=== PATIENT | male | born 1990 | race Caucasian/White ===

== ENCOUNTER 2018-09-10 12:14 | Inpatient (IN) ==
[2018-09-10] MEDS ORDERED: *HR* HYDROmorphone (PF) 1 MG/ML SYRINGE IVP ONE ×3 (12:52→15:23)
--- NOTE | 2018-09-10 12:53 | Emergency Department Note ---
Disposition Clinical Impression: Discitis of lumbosacral region Disposition: Admitted As Inpatient Forms: ED Satisfaction Letter General Adult HPI - General Chief complaint: ED Back Pain/Injury Stated complaint: BACK PAIN POSSIBLE INFECTION TO SPINE Time Seen by Provider: 09/10/18 12:23 Source: patient Limitations: no limitations Nursing Notes Reviewed: Yes Vital Signs Reviewed: Yes - History of Present Illness HPI Narrative: Attestation note: Patient was seen with the emergency medicine resident/nurse practitioner/physician medical assistant/transitional resident/medical student: Dr. ABBE TRUJILLO I have personally performed a face to face evaluation on this patient. I have reviewed and agree with history and physical examination patient management and disposition. Briefly the salient points of the case are as follows: Patient was seen just [address] Dickens and Dr. Osorio, the performed an MRI of the spine which was suggestive for discitis versus osteomyelitis. That CBC ESR CRP which were within normal limits the consulted spine surgeon production supv Dr. Cotton who recommended the patient come in for IV antibiotics. They offered this patient declined and was discharged home. Patient returns with continuing pain states she wishes to be admitted at this time. Patient will have repeated labs IV analgesics will start IV antibiotics after cultures and we will admit. Disposition pending Pain Scale: 10 - Related Data Allergies Allergy/AdvReac Type Severity Reaction Status Date / Time No Known Allergies Allergy Verified 09/10/18 12:18 Past Medical History - Past Medical History Medical history: Reports: no medical history Psychiatric history: Reports: no psych history - Social History Smoking Status: Former smoker Smokeless Tobacco Status: No Alcohol use: Reports: rarely Drug use: Reports: none Physical Exam - General Limitations: no limitations General appearance: alert, in no apparent distress Course Vital Signs Temperature 97.9 F 09/10/18 12:18 Pulse Rate 89 09/10/18 12:18 Respiratory Rate 18 09/10/18 12:18 Blood Pressure 153/100 09/10/18 12:18 O2 Sat by Pulse Oximetry 99 09/10/18 12:18 Temperature 97.9 F 09/10/18 12:18 Pulse Rate 89 09/10/18 12:18 Respiratory Rate 18 09/10/18 12:18 Blood Pressure 153/100 09/10/18 12:18 O2 Sat by Pulse Oximetry 99 09/10/18 12:18 Oxygen Delivery Oxygen Delivery Room Air
[2018-09-10 13:42] LABS: Basophils % 0.3 %; Eosinophils # 0.1 K/mcL (0.0-0.6); Eosinophils % 1.1 %; Hematocrit 46.5 % (37.5-50.1); Hemoglobin 15.5 g/dL (12.9-16.9); Immature Granulocytes % 0.6 % (0-4); Lymphocytes # 2.4 K/mcL (0.6-4.6); Lymphocytes % 21.9 %; Mean Corpuscular HGB Conc 33.3 g/dL (31.6-35.5); Mean Corpuscular Hemoglobin 30.6 pg (28.0-33.3); Mean Corpuscular Volume 91.7 fL (83.0-100.0); Mean Platelet Volume 9.9 fL (9.4-12.4); Monocytes # 0.7 K/mcL (0.0-1.3); Monocytes % 6.4 %; Neutrophils # 7.5 K/mcL (1.6-8.9); Platelet Count 212 K/mcL (140-400); Red Blood Count 5.07 M/mcL (4.19-5.50); Red Cell Distribution Width 12.4 % (11.5-14.5); Segmented Neutrophils % 69.7 %
[2018-09-10 13:59] LABS: BUN/Creatinine Ratio 18 (6-26); Blood Urea Nitrogen 15 mg/dL (6-20); C-Reactive Protein < 5 mg/L (Less than 10); Calcium 8.8 mg/dL (8.6-10.3); Carbon Dioxide 30 mEq/L (23-29); Chloride 102 mEq/L (98-107); Glucose 98 mg/dL (70-105); Osmolality,Calculated 291 (280-300); Potassium 3.3 mEq/L (3.5-5.1); Sodium 140 mEq/L (136-145); eGFR For Non-African Americans > 60 (> 60)
[2018-09-10] MEDS ORDERED: Ondansetron 4 MG/2 ML VIAL IVP ONE (14:17)
--- NOTE | 2018-09-10 14:18 | Emergency Department Note ---
Disposition Clinical Impression: Discitis of lumbosacral region, Lumbar radiculopathy, Spinal stenosis Disposition: Admitted As Inpatient Condition: Fair Referrals: NONE,PCP [Primary Care Provider] - Forms: ED Satisfaction Letter Time of Disposition: 15:26 Back Pain HPI - General Chief Complaint: ED Back Pain/Injury Stated Complaint: BACK PAIN POSSIBLE INFECTION TO SPINE Time Seen by Provider: 09/10/18 12:23 Source: patient Limitations: no limitations Nursing Notes Reviewed: Yes Vital Signs Reviewed: Yes - History of Present Illness HPI Narrative: 28 yo male with past medical history significant for spinal surgery performed in December presents to the emergency department with back pain. Patient was seen here 2 days ago and had an MRI performed which showed probable osteomyelitis and Dr. Cotton was called at that time. Dr. Cotton offered the patient admission versus discharge for treatment of his back pain that has been constant since December the patient wished to be discharged at that time. Patient is returning today and states he is willing to be admitted today. He has decreased sensation in his bilateral lower extremities with associated weakness and pain. Patient denies intravenous drug use, no longer smokes but was a daily smoker, and rarely uses alcohol. - Related Data Home Medications Medication Instructions Recorded Confirmed Gabapentin [Neurontin] 600 mg PO TID 09/10/18 09/10/18 Oxycodone HCl/Acetaminophen 1 each PO Q8H PRN 09/10/18 09/10/18 [Percocet 5-325 mg Tablet] Allergies Allergy/AdvReac Type Severity Reaction Status Date / Time No Known Allergies Allergy Verified 09/10/18 12:18 All systems ED: reviewed and negative except as stated. Review of Systems: As Per HPI Constitutional: Reports: weakness. Denies: fever, chills Cardiovascular: Denies: chest pain, palpitations, dyspnea on exertion Respiratory: Denies: cough, dyspnea, wheezes Gastrointestinal: Reports: nausea, vomiting. Denies: abdominal pain, diarrhea Genitourinary: Denies: dysuria, hematuria Musculoskeletal: Reports: back pain. Denies: neck pain Integumentary: Denies: rash Neurological: Reports: weakness, numbness, paresthesias, abnormal gait. Denies: headache Endocrine: Reports: fatigue Past Medical History - Past Medical History Attestation: Yes The following information was validated with the patient. Source: patient Medical history: Reports: no medical history Psychiatric history: Reports: no psych history - Social History Smoking Status: Former smoker Smokeless Tobacco Status: No Alcohol use: Reports: rarely Drug use: Reports: none Physical Exam - General Limitations: no limitations General appearance: alert, in no apparent distress - Head Head exam: atraumatic, normocephalic - Eye Eye exam: Present: PERRL, EOMI, other (Ptosis of the left eye, patient states this is chronic) - ENT ENT exam: normal exam, normal oropharynx - Neck Neck exam: Present: normal inspection. Absent: tenderness, meningismus, lymphadenopathy - Chest Chest inspection: Present: normal inspection. Absent: tenderness, rash - Respiratory Respiratory exam: Present: normal lung sounds bilaterally - Cardiovascular Cardiovascular exam: Present: regular rate, normal rhythm - Abdominal Exam Abdominal exam: Present: soft, Non-Tender. Absent: distention, guarding, rebound, rigidity - Extremities Exam Extremities exam: Absent: pedal edema - Back Exam Back exam: Present: vertebral tenderness (At the level of the scar), straight leg raise (R), straight leg raise (L) - Neurological Exam Neurological exam: Present: alert, oriented X3, other (Patient endorses decreased sensation of his low back at the level of his scar, continuing down his lower extremities. He also has weakness of his lower 70s with dorsiflexion and plantar flexion, weakness and leg raise causes pain in his low back.) - Psychiatric Psychiatric exam: Present: normal affect, normal mood - Skin Skin exam: Present: warm, dry, intact Course Vital Signs Temperature 97.9 F 09/10/18 12:18 Pulse Rate 89 09/10/18 12:18 Respiratory Rate 18 09/10/18 12:18 Blood Pressure 153/100 09/10/18 12:18 O2 Sat by Pulse Oximetry 99 09/10/18 12:18 Temperature 97.9 F 09/10/18 12:18 Pulse Rate 84 09/10/18 14:08 Respiratory Rate 18 09/10/18 14:08 Blood Pressure 146/100 09/10/18 14:08 O2 Sat by Pulse Oximetry 96 09/10/18 14:08 Oxygen Delivery Oxygen Delivery Room Air Back Pain/Injury - MDM Narrative Medical decision making narrative: Patient with recent diagnosis of possible discitis versus osteomyelitis on Fr iday returns to the emergency department for worsening pain and neuro symptoms. We will repeat blood work and admitted to the hospitalist for treatment of his osteomyelitis. 1500 - spoke with the hospitalist who requests Dr. Cotton be notified of this patient and wishes the patient be started on vanc and zosyn. I called and spoke with Dr. Cotton who states that he does not believe that this is discitis or osteomyelitis as the patient's ESR and CRP are within normal limits. He states that he will be on-call if the hospitalist should need him for any acute spinal emergencies but suggests that this time that the patient have his pain controlled and have a possible neurology consult for his lower extremity weakness and neurologic symptoms. - Medical Records Medical records reviewed: Yes I reviewed the patient's medical records. - Lab Data Lab results reviewed: Yes I reviewed the patient's lab results. Result diagrams: 09/10/18 13:27 09/10/18 13:27 Lab Results 09/10/18 09/10/18 09/10/18 Range/Units 13:27 13:27 13:27 WBC 10.8 (4.3-11.1) K/mcL RBC 5.07 (4.19-5.50) M/mcL Hgb 15.5 (12.9-16.9) g/dL Hct 46.5 (37.5-50.1) % MCV 91.7 (83.0-100.0) fL MCH 30.6 (28.0-33.3) pg MCHC 33.3 (31.6-35.5) g/dL RDW 12.4 (11.5-14.5) % Plt Count 212 (140-400) K/mcL MPV 9.9 (9.4-12.4) fL Immature Gran % 0.6 (0-4) % Seg Neutrophils % 69.7 % Lymphocytes % 21.9 % Monocytes % 6.4 % Eosinophils % 1.1 % Basophils % 0.3 % Neutrophils # 7.5 (1.6-8.9) K/mcL Lymphocytes # 2.4 (0.6-4.6) K/mcL Monocytes # 0.7 (0.0-1.3) K/mcL Eosinophils # 0.1 (0.0-0.6) K/mcL Basophils # 0.0 (0.0-0.2) K/mcL ESR 9 (0-10) mm/hr Sodium 140 (136-145) mEq/L Potassium 3.3 L (3.5-5.1) mEq/L Chloride 102 (98-107) mEq/L Carbon Dioxide 30 H (23-29) mEq/L BUN 15 (6-20) mg/dL Creatinine 0.85 (0.70-1.30) mg/dL Est GFR ( Amer) > 60 (> 60) Est GFR (Non-Af Amer) > 60 (> 60) BUN/Creatinine Ratio 18 (6-26) Glucose 98 (70-105) mg/dL Calculated Osmolality 291 (280-300) Calcium 8.8 (8.6-10.3) mg/dL C-Reactive Protein < 5 (Less than 10) mg/L - Radiology Data Radiology results reviewed: Yes I reviewed the patient's radiology results. - EKG Data EKG attestation: Yes I reviewed and interpreted this EKG. EKG results narrative: EKG obtained at 13:02 on 09/10/2018 Heart rate 77 bpm, SD interval 148, QRS duration 100, QT 370, QTC 419 Sinus rhythm with RSR prime in lead V1. No signs of ST segment elevations or depressions. No other T-wave abnormalities. No old EKG for comparison.
[2018-09-10] MEDS ORDERED: Acetaminophen 325 MG TABLET PO PRN (16:19)
[2018-09-10] MEDS ORDERED: Naloxone 0.4 MG/ML INJ IVP PRN (16:19)
[2018-09-10] MEDS: *HR* Heparin 5,000 UNIT/ML VIAL SQ SCH (16:54)
[2018-09-10] MEDS: *HR* OxyCODONE Immed Rel 5 MG TABLET PO PRN ×2 (16:54→23:07)
--- NOTE | 2018-09-10 17:32 | Internal Med History&Physical ---
Date of Encounter: 09/10/18 Time of Encounter: 16:00 Internal Medicine - H&P: HPI Chief complaint: Back pain with bilateral leg weakness Admitted From: Home Plans for Post Hospital Care: Home History of present illness: Mr. Sanders is a 28 year old male presented to ER for chronic and the progressive back pain with bilateral leg weakness/numbness. Past medical history is significant for congenital spinal stenosis S/P surgery in December 2017. Patient has spinal surgery on December 2017 in [facility] by Dr Carlisle. After surgery, patient has chronic back pain, which is progressively getting worse. Patient also has bilateral leg numbness and weakness. Patient's symptoms getting worse gradually. In last 3 months, he has several fall because of bilateral leg weakness. Patient denies urinary or fecal incontinence. Patient denies a fever. Patient came to emergency room on Tuesday, MRI L-spine has been done, which shows suspected discitis/osteomyelitis and anterior paraspinal phlegmon. Spinal surgery was called at that time, recommend patient to follow-up as outpatient or have inpatient treatment. Patient close to treat as outpatient. However, patient change his mind today and would like to treat as inpatient. Past Med Surg Social Fam HX - Past Medical History Medical history: no medical history Psychiatric history: no psych history - Past Surgical History Surgical History: cholecystectomy Additional surgical history: DISCECTOMY L5-S1 DEC 2017, [facility] - Social History Smoking Status: Former smoker Smokeless Tobacco Status: No Alcohol use: rarely Drug use: none - Family History Mother Hx Family Psychosocial Disorders: Yes (BIPOLAR, MEMORY LOSS, ANXIETY) Hx Family Medical Disorders: (CVA'S) Internal Medicine - H&P: Meds Gabapentin [Neurontin] 600 mg PO TID 09/10/18 [History] Oxycodone HCl/Acetaminophen [Percocet 5-325 mg Tablet] 1 each PO Q8H PRN 09/10/18 [History] Allergy/AdvReac Type Severity Reaction Status Date / Time No Known Allergies Allergy Verified 09/10/18 12:18 All Systems PM: A 10-system review of systems was performed and is negative for pertinent findings except as documented above in the HPI. - Constitutional Vitals: Temp Pulse Resp BP Pulse Ox 98.0 F 74 16 136/91 96 09/10/18 16:22 09/10/18 16:22 09/10/18 16:22 09/10/18 16:22 09/10/18 16:22 Exam: Pt is AAO x 3, in NAD HEENT: NC/AT, PERRL Neck: Supple, no JVD, no LAD Lungs: CTA b/l Heart: S1S2, RRR Abd: Soft, nontender, BS present Ext: ROM wnl, no pedal edema Neuro: Bilateral leg decreased sensation. Straight leg raising test positive bilaterally. Internal Med - H&P Results - Labs CBC & Chem 7: 09/10/18 13:27 09/10/18 13:27 Labs: Short CBC 09/10/18 Range/Units 13:27 WBC 10.8 (4.3-11.1) K/mcL Hgb 15.5 (12.9-16.9) g/dL Hct 46.5 (37.5-50.1) % Plt Count 212 (140-400) K/mcL Neutrophils # 7.5 (1.6-8.9) K/mcL BMP 09/10/18 13:27 Sodium 140 Potassium 3.3 L Chloride 102 Carbon Dioxide 30 H BUN 15 Creatinine 0.85 Glucose 98 Calcium 8.8 - Assessment and Plan (1) Discitis of lumbosacral region Current Visit: Yes Status: Acute Assessment and plan: Spinal surgery Dr. Cotton was called. Will see patient. - Continue pain management. Continue physical therapy. (2) Lumbar radiculopathy Current Visit: Yes Status: Acute Assessment and plan: Management as above (3) Spinal stenosis Current Visit: Yes Status: Acute Assessment and plan: S/P surgery. MRI shows congenital spinal stenosis. Continue pain management and physical therapy. Consul spinal surgery Qualifiers: Spinal region: lumbar Neurogenic claudication status: with neurogenic claudication Qualified Code(s): M48.062 - Spinal stenosis, lumbar region with neurogenic claudication (4) Osteomyelitis Current Visit: Yes Status: Acute Assessment and plan: MRI suspected osteomyelitis. However patient's back pain and leg numbness/weakness is quite chronic after surgery. He has no fever, no leukocytosis. More importantly, his CRP and ESR is within normal limit. Discussed surgical consult Dr. Cotton on phone, consider less likely osteomyelitis. - We will hold antibiotic at this point. Waiting for spinal surgery see patient. Qualifiers: Osteomyelitis type: unspecified type Osteomyelitis location: other site Qualified Code(s): M86.9 - Osteomyelitis, unspecified - Time Spent With Patient Total time spent is greater than 50% in coordination of care (as documented) at patient's floor/unit and/or counseling patient: 40 minutes Greater than 35 minutes
--- NOTE | 2018-09-10 17:43 | Spine Progress Note ---
Date of Encounter: 09/10/18 Time of Encounter: 17:40 - Assessment and Plan (1) Status post lumbar microdiscectomy Current Visit: Yes Status: Chronic Patient is lying in bed complaining of back pain which she rates as 7 on a pain scale. Afebrile vital signs stable. His hips move symmetrically. He is able to fire all lower extremity motor groups but with questionable effort. He has at least 3+ strength in the quads and hamstings, dorsiflexors and plantar flexors. He has a negative straight leg raise. He has no clonus. MRI of the lumbar spine reveals postsurgical changes at L5-S1 consistent with decompression. He has some inflammatory/postsurgical changes but I do not see clear evidence of discitis osteomyelitis or epidural abscess. He has some residual foraminal narrowing at L4-5 and L5-S1. Laboratory studies reveal white count 10 with no shift, ESR and CRP are within normal limits Impression: 1) failed back surgical syndrome 2) lumbar radiculopathy 3) status post microdiscectomy Plan: I do not see a role for acute surgical intervention. His workup thus far including MRI and EMG as an outpatient has been negative. He has missed pain management appointments with Dr. Cortes and I will suggest that we schedule follow-up in Dr. Cortes's office for management of failed back syndrome including consideration of spinal cord stimulator or other interventional treatment. It may be reasonable to get a neurologic opinion in case this is something nonspine related with regard to his lower extremity weakness but I have low suspicion of definitive findings. Subjective Principal diagnosis: S/p lumbar microdiscectomy, failed back syndrome, lumbar radiculopathy Interval history: Patient is well known to my practice. Briefly he is a 28-year-old male with c hronic history of back pain and bilateral lower extremity radicular symptoms and paresthesias. I saw him June 2018. He has a history of prior lumbar decompressive surgeries on 2 occasions one week apart at [facility] [place]. His first surgeon was Dr. Carlisle who did a decompression at L5-S1 and then approximately 1 week later he had another surgery by his partner. He said he did not get complete relief of symptoms despite these procedures. He has had workup in our office including MRI at that time in June 2018 as well as EMG of the lower extremities by Dr. Price which was normal. He is admitted with concerns and complaints of weakness in the lower extremities as well as concern for osteomyelitis on MRI examination. He is currently afebrile. His laboratory indices including CBC with differential, ESR, and CRP are within normal limits. He denies fevers or chills. Objective Vital signs: Vital Signs Temp Pulse Resp BP Pulse Ox 09/10/18 16:22 98.0 F 74 16 136/91 96 09/10/18 15:34 88 18 135/92 97 09/10/18 14:08 84 18 146/100 96 09/10/18 12:18 97.9 F 89 18 153/100 99 Intake and Output 09/10/18 09/10/18 09/10/18 07:59 15:59 23:59 Other: Weight 130.544 kg 129.7 kg Patient Weight 09/10/18 23:59 Weight 129.7 kg - Labs CBC & BMP: 09/10/18 13:27 09/10/18 13:27 Labs: Abnormal lab results Potassium 3.3 mEq/L (3.5-5.1) L 09/10/18 13:27 Carbon Dioxide 30 mEq/L (23-29) H 09/10/18 13:27 Consult Discharge Plan - Plan Referrals: NONE,PCP [Primary Care Provider] -
[2018-09-10] MEDS: *HR* HYDROcodone/Acet 5/325 mg TABLET PO PRN (18:50)
[2018-09-11] MEDS: Gabapentin 300 MG CAPSULE PO SCH ×4 (00:33→20:59)
[2018-09-11 01:16] LABS: Amphetamine Screen,Urine Negative ng/mL (Cutoff=1000); Barbiturate Screen,Urine Negative ng/mL (Cutoff=200); Benzodiazepines Screen,Urine Negative ng/mL (Cutoff=200); Cannabinoid Screen,Urine Negative ng/mL (Cutoff = 50); Cocaine Screen,Urine Negative ng/mL (Cutoff= 300); Opiate Screen,Urine Positive ng/mL (Cutoff=300); Phencyclidine Screen,Urine Negative ng/mL (Cutoff=25)
[2018-09-11] MEDS: *HR* Heparin 5,000 UNIT/ML VIAL SQ SCH ×2 (05:34→17:25)
[2018-09-11] MEDS: *HR* OxyCODONE Immed Rel 5 MG TABLET PO PRN ×4 (05:35→20:59)
[2018-09-11 05:59] LABS: Basophils % 0.6 %; Eosinophils # 0.2 K/mcL (0.0-0.6); Eosinophils % 3.1 %; Hematocrit 43.5 % (37.5-50.1); Hemoglobin 14.2 g/dL (12.9-16.9); Immature Granulocytes % 0.4 % (0-4); Lymphocytes # 2.7 K/mcL (0.6-4.6); Lymphocytes % 38.7 %; Mean Corpuscular HGB Conc 32.6 g/dL (31.6-35.5); Mean Corpuscular Hemoglobin 30.2 pg (28.0-33.3); Mean Corpuscular Volume 92.6 fL (83.0-100.0); Mean Platelet Volume 10.3 fL (9.4-12.4); Monocytes # 0.6 K/mcL (0.0-1.3); Monocytes % 8.3 %; Neutrophils # 3.4 K/mcL (1.6-8.9); Platelet Count 185 K/mcL (140-400); Red Cell Distribution Width 12.1 % (11.5-14.5); Segmented Neutrophils % 48.9 %
[2018-09-11 06:03] LABS: Prothrombin Time 10.8 Seconds (9.4-12.1)
[2018-09-11 06:18] LABS: BUN/Creatinine Ratio 15 (6-26); Blood Urea Nitrogen 13 mg/dL (6-20); Calcium 8.8 mg/dL (8.6-10.3); Carbon Dioxide 33 mEq/L (23-29); Chloride 103 mEq/L (98-107); Chol/HDL Ratio 3.2 (0-4.9); Cholesterol 119 mg/dL (< 200); Glucose 103 mg/dL (70-105); HDL Cholesterol 37 mg/dL (40-59); LDL Cholesterol,Calculated 57 mg/dL (0-99); Magnesium 2.3 mg/dL (1.6-2.6); Osmolality,Calculated 294 (280-300); Potassium 3.4 mEq/L (3.5-5.1); Sodium 142 mEq/L (136-145); Triglycerides 127 mg/dL (< 150); eGFR For Non-African Americans > 60 (> 60)
--- NOTE | 2018-09-11 09:33 | Neurology - Consult Note ---
<Connor Hurtado J - Last Filed: 09/11/18 11:07> Date of Encounter: 09/11/18 Time of Encounter: 09:24 Assessment and Plan (1) Status post lumbar microdiscectomy Current Visit: Yes Status: Chronic 28-year-old male who is S/P lumbar microdiscectomy and failed back syndrome with lumbar radiculopathy. Neurology to evaluate for nonspinal cause of bilateral lower extremity weakness. Reporting bilateral leg weakness since December 2017 S/P lumbar microdiscectomy; Progressing more rapidly in the last 2 months MRI spine imaging reveals postsurgical changes at L5-S1 consistent with decompression. Orthopedist seeing in consultation; recommendations appreciated. Per orthospine evaluation the MRI imaging does not reveal clear evidence of discitis, osteomyelitis or epidural abscess; most likely postsurgical changes Neurologically his is intact including reflexes which are 2/4+ bilaterally arms and legs. He displays mild weakness to bilateral legs but also appears to have poor effort moving legs to resistance. He notes low back pain with bilateral leg movement. Additionally, the patient notes that he did not complete physical therapy upon discharge from [facility] in December 2017. I have low suspicion for an acute inflammatory process such as GBS for the cause of his symptoms. Additionally, there are no UMN findings to suggest stenosis in the cervical spine. History of Present Illness Chief complaint: BLE weakness HPI: Mr. Sanders is a 28 year old male with a medical history significant for congenital spinal stenosis, discectomy x2 with most recent being in December 2017 of the L5-S1. He presented to [facility] with chronic and progressive back pain and chronic bilateral leg weakness/numbness. He reports that the leg weakness has been ongoing since his last surgery in December of 2017 and notes that it has gotten progressively worse in June of 2018. He reports that he has had several episodes in which he states "my legs have given out" which prompted him to fall. Addtionally, he notes that he has not been going to physical therapy since disc harge due to insurance and financial issues. He notes that due to the progressive leg weakness and falls he has had a decreased activity tolerance. He denies any flulike symptoms, unilateral weakness, urinary or bowel incontinence. He admits to bilateral leg paresthesias and intermittent shooting /"lightning" type leg pain in his left leg which is exacerbated by activity. MRI of the L-spine has been completed which showed suspected discitis versus osteomyelitis and anterior paraspinal phlegmon. Neurology has been consulted to assist with evaluation and to rule out suspicion for any other nonspinal cause of lower extremity weakness. Past Med Surg Social Fam HX - Past Medical History Medical history: no medical history Psychiatric history: no psych history - Past Surgical History Surgical History: cholecystectomy Additional surgical history: DISCECTOMY L5-S1 DEC 2017, TONISHERMILO, ADNOIDS - Social History Smoking Status: Former smoker Smokeless Tobacco Status: No Alcohol use: rarely Drug use: none - Family History Mother Hx Family Psychosocial Disorders: Yes (BIPOLAR, MEMORY LOSS, ANXIETY) Hx Family Medical Disorders: (CVA'S) Medications and Allergies Gabapentin [Neurontin] 600 mg PO TID 09/10/18 [History] Oxycodone HCl/Acetaminophen [Percocet 5-325 mg Tablet] 1 each PO Q8H PRN 09/10/18 [History] Allergy/AdvReac Type Severity Reaction Status Date / Time No Known Allergies Allergy Verified 09/10/18 12:18 All Systems: The remainder of the systems were reviewed and are negative Review of Systems: REVIEW OF SYSTEMS NEUROLOGIC: Negative for any blurry vision, blind spots, double vision, facial asymmetry, dysphagia, dysarthria, hemiparesis, hemisensory deficits, unilateral weakness or numbness/tingling + burning, shooting pain of RLE and B/L leg weakness, parasthesias B/L legs ENDOCRINE: Thyroid trouble, heat/cold intolerance, excessive sweating, thirst, hunger, increased FSBG, or A1C, DM, increased urination, changes in height/weight MUSCULOSKELETAL: + loss of strength bilateral legs, limitations to activity tolerance Physical Examination - Vital Signs Vital Signs: Initial Vital Signs Temp Pulse Resp BP Pulse Ox 97.9 F 89 18 153/100 99 09/10/18 12:18 09/10/18 12:18 09/10/18 12:18 09/10/18 12:18 09/10/18 12:18 - Exam Exam: Examination: General Examination: *CONSTITUTIONAL: Alert and oriented x3, no acute distress *GENERAL APPEARANCE OF PATIENT appears healthy and well groomed *EYES: pupils equal, round, reactive to light and accommodation, conjunctiva clear *CARDIOVASCULAR no peripheral edema, distal temperature normal, dorsalis pedis pulses normal. Musculoskeletal: *GAIT AND STATION normal, with normal Romberg testing, no abnormalities such as broad base gait or spasticity *ASSESSMENT OF MUSCLE STRENGTH IN THE UPPER AND LOWER EXTREMITIES bilateral deltoid, bicep, tricep, linotype machinist strength 4/5, hip flexors ,anterior tibialis, dorsoflexion of the foot 4/5; poor effort on exam of strength BLE *MUSCLE TONE IN THE UPPER AND LOWER EXTREMITIES normal. No abnormal movements, fasciculations or atrophy identified. Neurological: *ORIENTATION to person, situation, time and place *RECURRENT AND REMOTE MEMORY intact *ATTENTION AND CONCENTRATION are normal *LANGUAGE FUNCTION no significant aphasia or dysarthia was noted. *FUND OF KNOWLEDGE aware of current events, past history, vocabulary *MENTAL attention span and concentration normal. *CN II optic fundi were normal, no papilledema noted. *CN III,IV, PERRLA extraocular eye movements were full, no nystagmus and no ptosis noted. *CN V shows normal sensation and jaw opens symmetrically. *CN VII shows normal facial movement symmetrically, upper and lower b ilaterally. *CN VIII shows no significant hearing loss on exam *CN IX,,X palate elevated symmetrically *CN XI normal strength in the sternocleidomastoid muscles, symmetrical shoulder shrugging. *CN XII tongue protruded in the midline, with normal strength and movement. *SENSORY EXAMINATION light touch intact *REFLEXES: deep tendon reflexes were normal and symmetrical , grade 2/4 diffusely, no pathological reflexes were noted. *CEREBELLAR TESTING normal finger to nose, heel/knee/barrow *PAIN LEVEL 0 Results - Laboratory Findings CBC and BMP: 09/11/18 05:11 09/11/18 05:11 Abnormal lab findings: Abnormal lab results Potassium 3.4 mEq/L (3.5-5.1) L 09/11/18 05:11 Carbon Dioxide 33 mEq/L (23-29) H 09/11/18 05:11 37 mg/dL (40-59) L 09/11/18 05:11 Positive ng/mL ([place]=192) H 09/11/18 00:40 - Diagnostic Findings Additional findings: MR/MR lumbar spine wo/w con IMPRESSION: 1. Motion limited evaluation. 2. Changes of prior L5 laminectomies and partial right L5-S1 facetectomies with increased L5-S1 intradiscal fluid, endplate edema and enhancement, and right anterolateral soft tissue edema and enhancement suspicious for discitis/osteomyelitis and anterior paraspinal phlegmon. No evidence of abscess. 3. Enhancing tissue in the L5 neural foramina and L5-S1 lateral recesses may reflect granulation tissue versus phlegmon. No epidural abscess. 4. Diffuse congenital spinal canal stenosis. 5. Mild residual L5-S1 spinal canal stenosis secondary to congenital narrowing and disc bulge. Consult Discharge Plan - Plan Referrals: NONE,PCP [Primary Care Provider] - <Hilaria Haile - Last Filed: 09/11/18 18:40> Date of Encounter: 09/11/18 Assessment and Plan (1) Status post lumbar microdiscectomy Current Visit: Yes Status: Chronic History of Present Illness HPI: Mr. Sanders is a 28 year old male All Systems: The remainder of the systems were reviewed and are negative Physical Examination - Vital Signs Vital Signs: Initial Vital Signs Temp Pulse Resp BP Pulse Ox 97.9 F 89 18 153/100 99 09/10/18 12:18 09/10/18 12:18 09/10/18 12:18 09/10/18 12:18 09/10/18 12:18 Results - Laboratory Findings CBC and BMP: 09/11/18 05:11 09/11/18 05:11 Abnormal lab findings: Abnormal lab results Potassium 3.4 mEq/L (3.5-5.1) L 09/11/18 05:11 Carbon Dioxide 33 mEq/L (23-29) H 09/11/18 05:11 37 mg/dL (40-59) L 09/11/18 05:11 Positive ng/mL (Nkyhhz=176) H 09/11/18 00:40
--- NOTE | 2018-09-11 11:38 | Infectious Disease Consult ---
Infectious Disease-Consult - Encounter Date/Time Date of Encounter: 09/11/18 Time of Encounter: 11:34 - Data of Consult Patient: new to practice Reason for consult: Discitis lumbar spine Consult date: 09/11/18 Requesting Physician: [facility] Primary Care Provider: PCP NONE - HPI HPI: Mr. Sanders is a 28-year-old male with a past medical history of congenital spinal canal stenosis status post lumbar decompressive surgeries 2 in 2017. The patient was admitted to the hospital 09/10/18 for discitis of the lumbosacral region. We are consulted 09/11/18 for further workup and treatment recommendations for possible discitis of the lumbosacral region. Briefly, the patient is a 28-year-old male with a past medical history as stated above. The patient presented to the emergency department originally back on September 08 with complaints of back pain. At that time, he had tachycardia, but was otherwise hemodynamically stable and afebrile. He had an MRI of the lumbar spine that showed changes of prior L5 laminectomies and partial right L5-S1 facetectomies with increased L5-S1 intradiscal fluid, and platelet edema and enhancement, and right anterolateral soft tissue edema and enhancement suspicious for discitis/osteomyelitis and anterior paraspinal phlegmon. No evidence of abscess was noted. Enhancing tissue in the L5 neural for amenorrhea and L5-S1 lateral recesses may reflect granulation tissue versus phlegmon. No epidural abscess noted. Torso-spine team was consulted and recommended admission to the hospital for further evaluation. The patient declined and signed out AMA. He came back to the emergency department on the day of admission with complaint of worsening back pain. Upon arrival, he was afebrile hemodynamically stable. Laboratory studies revealed a normal white blood cell count, ESR, and CRP blood cultures were obtained 2 sets and are pending. He was given a dose of vancomycin and Zosyn in the ER and admitted to the hospital for further evaluation. Since admission, the patient's been evaluated by her orthospine team who has reviewed the MRI does not feel that the patient has an infectious etiology. Neurology's been consulted as well. Currently, he is not on any antibiotics. We have been asked to evaluate and make further recommendations. During my exam today, the patient endorses a history as stated above. He states he has had worsening back pain with progressive numbness that became acutely worse Tuesday when he picked up his toddler and experienced severe pain and weakness in his bilateral lower extremities. He denies fevers or chills or rigors. Reports some headache, but denies any neck pain or stiffness. Denies congestion, earache, or sore throat. Denies chest pain, shortness of breath, cough. Denies nausea, vomiting, diarrhea, or constipation. Denies abdominal pain or urinary complaints. Denies incontinence or impotence. Complaints of weakness and numbness to the bilateral lower extremities. Reports the pain is 7 out of 10 currently and is in the middle of his lower back. Denies radiation of the pain to his buttocks or his legs. Denies oral thrush or skin lesions. The patient lives at home with his family. 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 He abates regularly, but denies alcohol or illicit drug use. Denies chronic infectious diseases. Denies any recent travel outside the [facility] except when he was driving a truck. Denies pain or animal exposures. - ROS Review of Systems: All systems reviewed and no additional remarkable complaints except as stated. - Results CBC & Chem 7: 09/11/18 05:11 09/11/18 05:11 - Exam Vitals: Temp Pulse Resp BP Pulse Ox 98.3 F 75 15 129/83 93 09/11/18 11:32 09/11/18 11:32 09/11/18 11:32 09/11/18 11:32 09/11/18 11:32 Exam: Head: Atraumatic, normal inspection, normocephalic. Eye: EOMI, PERRLA, no scleral icterus noted. Lazy eye noted to the right eye. ENT: Mucous membranes moist. No odontogenic infection noted. Neck: Normal inspection, no meningismus. Respiratory: Clear to auscultation. No rales, respiratory distress, rhonchi, or wheezes noted. Cardiovascular: Regular rate and rhythm, S1 and S2 audible. No murmurs, rubs, or gallops. GI: Soft, nondistended, normal bowel sounds. Extremities:No joint swelling, pedal edema, or tenderness noted. Shortening of the LLE noted. Back: Normal inspection. Tenderness noted with palpation of the lumbar spine. No erythema or warmth noted. Previous surgical scar well-healed.Positive SLR bilaterally. No hip/pelvis instability noted. Neurological: Alert, oriented 3, no focal deficits. Diminished sensation noted to the BLE. Psychiatric: normal affect, normal mood. Skin: Dry, intact, warm. Normal color. No rashes. Gabapentin [Neurontin] 600 mg PO TID 09/10/18 [History] Oxycodone HCl/Acetaminophen [Percocet 5-325 mg Tablet] 1 each PO Q8H PRN 09/10/18 [History] Allergy/AdvReac Type Severity Reaction Status Date / Time No Known Allergies Allergy Verified 09/10/18 12:18 - Assessment and Plan (1) Lumbar radiculopathy Current Visit: Yes Status: Acute Ortho-spine consulted and feels that MRI result more likely post-op changes and non-infectious. ESR and CRP normal. No SIRS criteria. Low index of suspicion for infection at this time. Not currently on antibiotics. SNOMED Code(s): 165358012 (2) Failed back syndrome, lumbar Current Visit: Yes Status: Acute Status post microdiscectomy and facetectomy 2018 at [facility]. Ortho-spine consulted and following. SNOMED Code(s): 854953361 (3) Spinal stenosis Current Visit: Yes Status: Acute Qualifiers: Spinal region: lumbar Neurogenic claudication status: with neurogenic claudication Qualified Code(s): M48.062 - Spinal stenosis, lumbar region with neurogenic claudication SNOMED Code(s): 97482997 (4) Status post lumbar microdiscectomy Current Visit: Yes Status: Chronic SNOMED Code(s): 653226704, 659997834 - Recommendations Recommendations: Await blood cultures to finalize. Pain management per the primary team. Close follow-up with ortho-spine recommended. Continue to observe off antibiotics. No further recommendations from the ID team. We will sign off. Please re-consult PRN. Past Med Surg Social Fam HX - Past Medical History Medical history: no medical history Psychiatric history: no psych history - Past Surgical History Surgical History: cholecystectomy Additional surgical history: DISCECTOMY L5-S1 DEC 2017, JUANCHO JENKINS - Social History Smoking Status: Former smoker Smokeless Tobacco Status: No Alcohol use: rarely Drug use: none - Family History Mother Hx Family Psychosocial Disorders: Yes (BIPOLAR, MEMORY LOSS, ANXIETY) Hx Family Medical Disorders: (CVA'S) Consult Discharge Plan - Plan Referrals: NONE,PCP [Primary Care Provider] - - Attending Attestation I have personally performed a face to face evaluation on this patient. I have reviewed and agree with the care plan. History and Exam by me shows: Patient seen and examined. Appears comfortable. Patient has had disc lumbar radiculopathy for a while and he feels that post procedure is at [facility] he started feeling worse. No fevers no chills inflammatory markers normal. MRI reviewed and appreciate Dr. Cotton and Dr. Bernal's input. Low index of suspicion for infection. Patient tells me also that he drives a truck. 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 No dirt or swelling or anything to suggest p ossible fungal infection. At this point we do not think there is an infectious cause so we will stop all antibiotics and sign off. I spent to the patient that there is no distention 100%. He can still have an infection theoretically and maybe with time it will reveal itself. If things get worse he says having symptoms like fevers chills night sweats to come back and see us.
[2018-09-11] MEDS ORDERED: *HR* OxyCODONE Immed Rel 5 MG TABLET PO SCH (12:00)
--- NOTE | 2018-09-11 15:40 | Pain Management Consultation ---
Date of Encounter: 09/11/18 Time of Encounter: 15:40 Assessment and Plan (1) Failed back syndrome, lumbar Current Visit: Yes Status: Acute The assessment and plan as outlined above was discussed with the patient and/or family members who expressed understanding and agreement. All questions were answered. Patient is followed with Dr. Cortes. Patient is seen by Dr. Cotton and not clearly a surgical candidate at this time. Patient does have a surgeon at [facility], Dr. Carlisle. From the standpoint of acute or chronic interventional pain the patient is not clearly indicated for any inpatient treatment right now. Recommendations are as follows: 1. Follow-up with his interventional pain specialist, Dr. Cortes as an outpatient 2. Consider IV steroids to assist with acute on chronicity with gabapentin therapy as well. Typically, gabapentin is started at 300mg every 8 hours, titrated up to a target of 600-800 mg every 8 hours. This is done over the course of several weeks to months. 3. Facilitate follow-up with the patient spinal surgeon, Dr. Carlisle at [facility] History of Present Illness Chief complaint: Back pain HPI: Mr. Sanders is a 28 year old male With low back pain and radiation down both legs. The pain is constant. The pain is worse with activity. The pain is positive patient's inability to relax comfortably. The pain prohibits the patient from performing advanced activities of daily living more basic activities are achievable until recently. Patient's admission was for an acute on chronic low back pain with radiation into the lower extremities. The patient is a known patient of [facility] whereby he had 2 discectomies in December [address] Carlisle. An MRI through the emergency room was performed and there is suspicion for infection. Patient was recently seen by infectious disease and it appears to not meet criteria for spinal infection or sepsis. Patient has planned follow up with [facility] for this issue. Past Med Surg Social Fam HX - Past Medical History Medical history: no medical history Psychiatric history: no psych history - Past Surgical History Surgical History: cholecystectomy Additional surgical history: DISCECTOMY L5-S1 DEC 2017, JUANCHO JENKINS - Social History Smoking Status: Former smoker Smokeless Tobacco Status: No Alcohol use: rarely Drug use: none - Family History Mother Hx Family Psychosocial Disorders: Yes (BIPOLAR, MEMORY LOSS, ANXIETY) Hx Family Medical Disorders: (CVA'S) Medications and Allergies Gabapentin [Neurontin] 600 mg PO TID 09/10/18 [History] Oxycodone HCl/Acetaminophen [Percocet 5-325 mg Tablet] 1 each PO Q8H PRN 09/10/18 [History] Allergy/AdvReac Type Severity Reaction Status Date / Time No Known Allergies Allergy Verified 09/10/18 12:18 Review of Systems - Constitutional Constitutional ROS IM: no photophobia, no phonophobia, no daytime sleepiness, no fever(s), no stops breathing during sleep - Cardiovascular Cardiovascular ROS: no chest pain, no leg edema, no lightheadedness - Respiratory Respiratory: no pain on inspiration, no pain with cough - Gastrointestinal Gastrointestinal: no abdominal pain, no constipation, no diarrhea, no heartburn - Genitourinary Genitourinary ROS: no difficulty urinating, no flank pain, no urinary hesitancy - Musculoskeletal Musculoskeletal ROS: abnormal gait, muscle weakness, radiating pain into limb - Integumentary Integumentary: no erythema, no lesions, no swelling - Neurological Neurological ROS: abnormal gait, radicular pain - Psychiatric Psychiatric general: no anxiety, no confusion, no depression - Hematologic/Lymphatic Hematologic/Lymphatic pediatric: no easy bleeding, no easy bruising Physical Exam Initial Vital Signs Temp Pulse Resp BP Pulse Ox 97.9 F 89 18 153/100 99 09/10/18 12:18 09/10/18 12:18 09/10/18 12:18 09/10/18 12:18 09/10/18 12:18 - General physical appearance General physical appearance: awake & oriented - Eyes Eye exam: normal ocular movement - Neck no masses - Respiratory normal respiratory effort - Cardiovascular Cardiovascular exam: Present: RRR - Integumentary Integumentary general surgery: other (well healed dorsal surgical scar) - Neurologic other (SLR pos bilaterally) - Musculoskeletal Musculoskeletal: point tenderness over spinal process - Psychiatric Psychiatric: oriented to time, oriented to person, oriented to place Results - Labs 09/11/18 05:11 09/11/18 05:11 Abnormal lab results Potassium 3.4 mEq/L (3.5-5.1) L 09/11/18 05:11 Carbon Dioxide 33 mEq/L (23-29) H 09/11/18 05:11 37 mg/dL (40-59) L 09/11/18 05:11 Positive ng/mL (Awrsxa=496) H 09/11/18 00:40 Diabetes panel 09/11/18 Range/Units 05:11 Sodium 142 (136-145) mEq/L Potassium 3.4 L (3.5-5.1) mEq/L Chloride 103 (98-107) mEq/L Carbon Dioxide 33 H (23-29) mEq/L BUN 13 (6-20) mg/dL Creatinine 0.88 (0.70-1.30) mg/dL Glucose 103 (70-105) mg/dL Calcium 8.8 (8.6-10.3) mg/dL Triglycerides 127 (< 150) mg/dL HDL Cholesterol 37 L (40-59) mg/dL Calcium panel 09/11/18 Range/Units 05:11 Calcium 8.8 (8.6-10.3) mg/dL Pituitary panel 09/11/18 Range/Units 05:11 Sodium 142 (136-145) mEq/L Potassium 3.4 L (3.5-5.1) mEq/L Chloride 103 (98-107) mEq/L Carbon Dioxide 33 H (23-29) mEq/L BUN 13 (6-20) mg/dL Creatinine 0.88 (0.70-1.30) mg/dL Glucose 103 (70-105) mg/dL Calcium 8.8 (8.6-10.3) mg/dL Adrenal panel 09/11/18 Range/Units 05:11 Sodium 142 (136-145) mEq/L Potassium 3.4 L (3.5-5.1) mEq/L Chloride 103 (98-107) mEq/L Carbon Dioxide 33 H (23-29) mEq/L BUN 13 (6-20) mg/dL Creatinine 0.88 (0.70-1.30) mg/dL Glucose 103 (70-105) mg/dL Calcium 8.8 (8.6-10.3) mg/dL All other labs normal. - Imaging Additional studies: I reviewed the MRI from 09/08/2018. There is laminectomy changes with increased L5S1 signal changes. There is evidence of granulation tissue versus phlegmon. Consult Discharge Plan - Plan Referrals: NONE,PCP [Primary Care Provider] -
--- NOTE | 2018-09-11 15:55 | Internal Med Progress Note ---
Hospitalist Progress Note - Encounter Date of Encounter: 09/11/18 Time of Encounter: 09:00 - Subjective Interval History: Patient still has back pain and bilateral leg weakness/numbness. About the same with yesterday. Need pain medication. No fever. - Exam Vitals: Temp Pulse Resp BP Pulse Ox 98.3 F 75 15 129/83 93 09/11/18 11:32 09/11/18 11:32 09/11/18 11:32 09/11/18 11:32 09/11/18 11:32 Exam: Pt is AAO x 3, in NAD HEENT: NC/AT, PERRL Neck: Supple, no JVD, no LAD Lungs: CTA b/l Heart: S1S2, RRR Abd: Soft, nontender, BS present Ext: ROM wnl, no pedal edema Neuro: Bilateral leg decreased sensation. Straight leg raising test positive bilaterally. - Assessment and Plan (1) Discitis of lumbosacral region Current Visit: Yes Status: Acute Assessment and Plan: Spinal surgery Dr. Cotton saw patient. Recommended to continue pain control and consult neurology - Continue pain management. Continue physical therapy. (2) Lumbar radiculopathy Current Visit: Yes Status: Acute Assessment and Plan: Management as above (3) Spinal stenosis Current Visit: Yes Status: Acute Assessment and Plan: S/P surgery. MRI shows congenital spinal stenosis. Continue pain management and physical therapy. Spinal surgery, pain management, and the neurology consult appreciated (4) Osteomyelitis Current Visit: Yes Status: Acute Assessment and Plan: MRI suspected osteomyelitis. However patient's back pain and leg numbness/weakness is quite chronic after surgery. He has no fever, no leukocytosis. More importantly, his CRP and ESR is within normal limit. Discussed surgical consult Dr. Cotton on phone, consider less likely osteomyelitis. - We will hold antibiotic at this point. - ID consult appreciated, agree with off antibiotics at this point, waiting for blood culture. - Time Spent with Patient Total time spent is greater than 50% in coordination of care (as documented) at patient's floor/unit and/or counseling patient: 30 minutes 25 - 35 minutes Plan of Care Discussed with: patient Internal Medicine: Result - Labs CBC & Chem 7: 09/11/18 05:11 09/11/18 05:11 Labs: Short CBC 09/11/18 Range/Units 05:11 WBC 7.0 (4.3-11.1) K/mcL Hgb 14.2 (12.9-16.9) g/dL Hct 43.5 (37.5-50.1) % Plt Count 185 (140-400) K/mcL Neutrophils # 3.4 (1.6-8.9) K/mcL BMP 09/11/18 05:11 Sodium 142 Potassium 3.4 L Chloride 103 Carbon Dioxide 33 H BUN 13 Creatinine 0.88 Glucose 103 Calcium 8.8 - ABG Interpretation ABG results: PT/INR, D-dimer PT 10.8 Seconds (9.4-12.1) 09/11/18 05:11 Consult Discharge Plan - Plan Referrals: NONE,PCP [Primary Care Provider] - (3) Spinal stenosis Qualifiers: Spinal region: lumbar Neurogenic claudication status: with neurogenic claudication Qualified Code(s): M48.062 - Spinal stenosis, lumbar region with neurogenic claudication (4) Osteomyelitis Qualifiers: Osteomyelitis type: unspecified type Osteomyelitis location: other site Qualified Code(s): M86.9 - Osteomyelitis, unspecified
[2018-09-11] MEDS ORDERED: Gadolinium Contrast Agent (WT Based) IV PRN (21:56)
[2018-09-12] MEDS: *HR* OxyCODONE Immed Rel 5 MG TABLET PO PRN ×5 (01:09→20:17)
[2018-09-12] MEDS ORDERED: Lidocaine Viscous Oral Soln 15 ML SOLUTION MM PRN (01:47)
[2018-09-12] MEDS: *HR* HYDROcodone/Acet 5/325 mg TABLET PO PRN ×3 (02:52→21:01)
[2018-09-12] MEDS: *HR* Heparin 5,000 UNIT/ML VIAL SQ SCH ×2 (05:34→17:38)
[2018-09-12] MEDS: Gabapentin 300 MG CAPSULE PO SCH ×3 (08:30→20:17)
[2018-09-12 10:39] LABS: Basophils % 0.5 %; Eosinophils # 0.2 K/mcL (0.0-0.6); Eosinophils % 3.9 %; Hematocrit 44.3 % (37.5-50.1); Hemoglobin 14.8 g/dL (12.9-16.9); Immature Granulocytes % 0.8 % (0-4); Lymphocytes # 2.1 K/mcL (0.6-4.6); Mean Corpuscular HGB Conc 33.4 g/dL (31.6-35.5); Mean Corpuscular Hemoglobin 30.8 pg (28.0-33.3); Mean Corpuscular Volume 92.3 fL (83.0-100.0); Mean Platelet Volume 10.4 fL (9.4-12.4); Monocytes # 0.4 K/mcL (0.0-1.3); Monocytes % 6.9 %; Neutrophils # 3.2 K/mcL (1.6-8.9); Platelet Count 173 K/mcL (140-400); Segmented Neutrophils % 52.9 %
[2018-09-12] MEDS: traMADol 50 MG TABLET PO PRN ×2 (11:37→18:40)
[2018-09-12 11:42] LABS: Blood Urea Nitrogen 12 mg/dL (6-20); Carbon Dioxide 31 mEq/L (23-29); Chloride 105 mEq/L (98-107); Potassium 3.9 mEq/L (3.5-5.1); Sodium 142 mEq/L (136-145)
[2018-09-12 11:43] LABS: BUN/Creatinine Ratio 13 (6-26); Glucose 109 mg/dL (70-105); Osmolality,Calculated 294 (280-300); eGFR For Non-African Americans > 60 (> 60)
--- NOTE | 2018-09-12 13:36 | Neurology Progress Note ---
Date of Encounter: 09/12/18 Time of Encounter: 13:30 Assessment and Plan (1) Status post lumbar microdiscectomy Current Visit: Yes Status: Chronic 28-year-old male who is S/P lumbar microdiscectomy and failed back syndrome with lumbar radiculopathy. Neurology to evaluate for nonspinal cause of bilateral lower extremity weakness. DTR's intact; as such, we do not suspect GBS; no need for LP Continuing to report bilateral leg weakness. Exam findings consistent with previous exam findings, no new neuro deficits found. Has been occurring since December 2017 S/P lumbar microdiscectomy; Progressing more rapidly in the last 2 months MRI spine imaging revealed postsurgical changes at L5-S1 consistent with decompression. Per orthospine evaluation the MRI imaging does not reveal clear evidence of discitis, osteomyelitis or epidural abscess; most likely postsurgical changes Dedicated Thoracic and Cervical spine MRI obtained MR C-spine - multilevel neural foraminal narrowing, no evidence of myelopathy MR T-spine - Cord displacement at T6-T7 due to possible inraaspinal hematoma or abscess versus ventral dural defect versus spinal arachnoid cyst. F/U MRI with contrast recommended MR T-spine with contrast- signal abnormality in the left aspect of the spinal canal at T5-T6 displacing the thoracic spinal cord to the right with mild spinal cord compression. PLAN: CT myelogram scheduled and pending completion Dr. Terry seeing in consultation; recommendations appreciated -further recommendations pending CT myelogram C/W pain management measures PT/OT consultation Subjective Principal diagnosis: S/p lumbar microdiscectomy, failed back syndrome, lumbar radiculopathy Objective - Constitutional Vitals: Temp Pulse Resp BP Pulse Ox 97.8 F 78 19 143/84 95 09/12/18 11:22 09/12/18 11:22 09/12/18 11:22 09/12/18 11:22 09/12/18 11:22 Exam: Examination: General Examination: *CONSTITUTIONAL: Alert and oriented x3, no acute distress *GENERAL APPEARANCE OF PATIENT appears healthy and well groomed *EYES: pupils equal, round, reactive to light and accommodation, conjunctiva clear *CARDIOVASCULAR no peripheral edema, distal temperature normal, dorsalis pedis pulses normal. Musculoskeletal: *GAIT AND STATION normal, with normal Romberg testing, no abnormalities such as broad base gait or spasticity *ASSESSMENT OF MUSCLE STRENGTH IN THE UPPER AND LOWER EXTREMITIES bilateral deltoid, bicep, tricep, car packer strength 4/5, hip flexors ,anterior tibialis, dorsoflexion of the foot 4/5; poor effort on exam of strength BLE; examination of muscular strength is consistent with previous findings, no new focal weakness *MUSCLE TONE IN THE UPPER AND LOWER EXTREMITIES normal. No abnormal movements, fasciculations or atrophy identified. Neurological: *ORIENTATION to person, situation, time and place *RECURRENT AND REMOTE MEMORY intact *ATTENTION AND CONCENTRATION are normal *LANGUAGE FUNCTION no significant aphasia or dysarthia was noted. *FUND OF KNOWLEDGE aware of current events, past history, vocabulary *MENTAL attention span and concentration normal. *CN II optic fundi were normal, no papilledema noted. *CN III,IV, PERRLA extraocular eye movements were full, no nystagmus and no ptosis noted. *CN V shows normal sensation and jaw opens symmetrically. *CN VII shows normal facial movement symmetrically, upper and lower bilaterally. *CN VIII shows no significant hearing loss on exam *CN IX,,X palate elevated symmetrically *CN XI normal strength in the sternocleidomastoid muscles, symmetrical shoulder shrugging. *CN XII tongue protruded in the midline, with normal strength and movement. *SENSORY EXAMINATION altered sensation to b/l upper thighs extending into groin area *REFLEXES: deep tendon reflexes were normal and symmetrical , grade 2/4 diffusely, no pathological reflexes were noted. *CEREBELLAR TESTING normal finger to nose, heel/knee/barrow *PAIN LEVEL 0 Results - Laboratory Findings CBC and BMP: 09/12/18 09:45 09/12/18 09:45 Abnormal lab findings: Abnormal lab results Potassium 3.4 mEq/L (3.5-5.1) L 09/11/18 05:11 Carbon Dioxide 31 mEq/L (23-29) H 09/12/18 09:45 Glucose 109 mg/dL (70-105) H 09/12/18 09:45 37 mg/dL (40-59) L 09/11/18 05:11 Positive ng/mL (Wctfik=924) H 09/11/18 00:40 Consult Discharge Plan - Plan Referrals: NONE,PCP [Primary Care Provider] -
--- NOTE | 2018-09-12 16:22 | Electrocardiograph Report ---
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
[2018-09-12] MEDS: Ketorolac 30 MG/ML VIAL IVP PRN (16:33)
--- NOTE | 2018-09-12 16:46 | Infectious Disease Progress No ---
ID Progress Note Date of Encounter: 09/12/18 Time of Encounter: 16:36 - Subjective Subjective: Patient seen and examined. Patient's back pain is unchanged. Still no fevers no chills no night sweats. No diarrhea. No chest pain or shortness of breath. Patient has had 2 MRIs and results are noted. - Objective CBC & Chem 7: 09/12/18 09:45 09/12/18 09:45 - Exam Vitals: Temp Pulse Resp BP Pulse Ox 97.7 F 82 18 154/101 95 09/12/18 15:59 09/12/18 15:59 09/12/18 15:59 09/12/18 15:59 09/12/18 15:59 Exam: GENERAL: Comfortable. Laying in bed NAD HEENT: BRIGID, EOMI LUNGS: Good air sounds bilaterally, no wheezing or rhonchi CV: RRR, S1 S2 ABDOMEN: Soft, nontender, + bowel sounds EXT: Adequate perfusion. No edema NEURO: A&OX3; no focal deficit - Assessment and Plan (1) Lumbar radiculopathy Current Visit: Yes Status: Acute Repeat MRI 09/12: Signal abnormality in the left aspect of the spinal canal at T5-6 displacing the thoracic spinal cord to the right with mild spinal cord compression, corresponding to the previously seen area of signal abnormality, likely extramedullary. This finding is nonspecific, may be related to atypical hemangioma, osteophyte formation, inflammatory changes or neoplasm versus artifacts. Further evaluation with CT myelogram may be beneficial. No acute fracture, subluxation or destructive osseous lesion in the thoracic spine. Prominent endplate osteophytes, most pronounced at the left paracentral location of T5-6 together with ossification of the left ligamentum flavum, contributing to [id number]-hi-tvyfubos spinal canal narrowing, rightward displacement of the thoracic spinal cord and mild spinal cord compression. These findings corresponding to the abnormal finding seen on recent MRI. Prominent endplate osteophytes at posterior aspect of T4-5, contributing to mild spinal canal narrowing. Foraminal narrowing, moderate at left T5-6, mild at right T3-4. ESR and CRP normal. No SIRS criteria. Low index of suspicion for infection at this time. Not currently on antibiotics. SNOMED Code(s): 358993421 (2) Failed back syndrome, lumbar Current Visit: Yes Status: Acute Status post microdiscectomy and facetectomy 2018 at [facility]. Ortho-spine consulted and following. SNOMED Code(s): 023373181 (3) Spinal stenosis Current Visit: Yes Status: Acute Qualifiers: Spinal region: lumbar Neurogenic claudication status: with neurogenic claudication Qualified Code(s): M48.062 - Spinal stenosis, lumbar region with neurogenic claudication SNOMED Code(s): 30451206 (4) Status post lumbar microdiscectomy Current Visit: Yes Status: Chronic SNOMED Code(s): 958493903, [id number] Consult Discharge Plan - Plan Referrals: NONE,PCP [Primary Care Provider] -
--- NOTE | 2018-09-12 19:05 | Internal Med Progress Note ---
Hospitalist Progress Note - Encounter Date of Encounter: 09/12/18 Time of Encounter: 10:00 - Subjective Interval History: Patient still has back pain, no change with yesterday. Still need pain medication. Bilateral leg weakness and numbness no change with yesterday. Vitals are stable. No fever - Exam Vitals: Temp Pulse Resp BP Pulse Ox 97.7 F 82 18 154/101 95 09/12/18 15:59 09/12/18 15:59 09/12/18 15:59 09/12/18 15:59 09/12/18 15:59 Exam: Pt is AAO x 3, in NAD HEENT: NC/AT, PERRL Neck: Supple, no JVD, no LAD Lungs: CTA b/l Heart: S1S2, RRR Abd: Soft, nontender, BS present Ext: ROM wnl, no pedal edema Neuro: Bilateral leg decreased sensation. Straight leg raising test positive bilaterally. - Assessment and Plan (1) Discitis of lumbosacral region Current Visit: Yes Status: Acute Assessment and Plan: Spinal surgery Dr. Cotton saw patient. Recommended to continue pain control and consult neurology - Continue pain management. Continue physical therapy. - Neurology consult appreciated, C-spine and T-spine MRI has been done, which shows T4-T6 spinal stenosis possibly due to compression (2) Lumbar radiculopathy Current Visit: Yes Status: Acute Assessment and Plan: Management as above (3) Spinal stenosis Current Visit: Yes Status: Acute Assessment and Plan: S/P surgery. MRI shows congenital spinal stenosis. Continue pain management and physical therapy. Spinal surgery, pain management, and the neurology consult appreciated - T spine MRI shows T4-T6 stenosis possibly by compression. Dr. Cotton is aware. CT myelogram ordered. (4) Osteomyelitis Current Visit: Yes Status: Acute Assessment and Plan: MRI suspected osteomyelitis. However patient's back pain and leg numbness/weakness is quite chronic after surgery. He has no fever, no leukocytosis. More importantly, his CRP and ESR is within normal limit. Discussed surgical consult Dr. Cotton on phone, consider less likely osteomyelitis. - We will hold antibiotic at this point. - ID consult appreciated, agree with off antibiotics at this point, waiting for blood culture. - Time Spent with Patient Total time spent is greater than 50% in coordination of care (as documented) at patient's floor/unit and/or counseling patient: 30 minutes 25 - 35 minutes Plan of Care Discussed with: patient Internal Medicine: Result - Labs CBC & Chem 7: 09/12/18 09:45 09/12/18 09:45 Labs: Short CBC 09/12/18 Range/Units 09:45 WBC 6.0 (4.3-11.1) K/mcL Hgb 14.8 (12.9-16.9) g/dL Hct 44.3 (37.5-50.1) % Plt Count 173 (140-400) K/mcL Neutrophils # 3.2 (1.6-8.9) K/mcL BMP 09/12/18 09:45 Sodium 142 Potassium 3.9 Chloride 105 Carbon Dioxide 31 H BUN 12 Creatinine 0.92 Glucose 109 H Calcium 9.0 - ABG Interpretation ABG results: PT/INR, D-dimer PT 10.8 Seconds (9.4-12.1) 09/11/18 05:11 - Impressions Impressions Cervical Spine MRI 09/11/18 16:58 IMPRESSION: Multilevel neural foraminal narrowing. No evidence of myelopathy. D/ / Zafar Dc MD / Zafar Dc MD Interpreting Provider: Zafar Dc MD Thoracic Spine MRI 09/11/18 16:58 IMPRESSION: Cord displacement at T6-7 due to a possible intraspinal hematoma or abscess versus ventral dural defect versus spinal arachnoid cyst. Recommend follow-up MR thoracic spine with IV contrast. No definite evidence of myelomalacia. RECOMMENDATIONS: The findings were sent to the Radiology Results Communication [facility] at 9:02 pm on 09/11/2018 to be communicated to a licensed caregiver. Case discussed with Dr. Cotton at 9:20 p.m.. D/ / 09/11/2018 21:15:13 Zafar Dc MD / [email or web address] Interpreting Provider: Zafar Dc MD Thoracic Spine MRI 09/12/18 08:00 IMPRESSION: Signal abnormality in the left aspect of the spinal canal at T5-6 displacing the thoracic spinal cord to the right with mild spinal cord compression, corresponding to the previously seen area of signal abnormality, likely extramedullary. This finding is nonspecific, may be related to atypical hemangioma, osteophyte formation, inflammatory changes or neoplasm versus artifacts. Further evaluation with CT myelogram may be beneficial. D/ / Jax Garza MD / Jax Garza MD Interpreting Provider: Jax Garza MD Thoracic Spine CT 09/12/18 12:16 IMPRESSION: No acute fracture, subluxation or destructive osseous lesion in the thoracic spine. Prominent endplate osteophytes, most pronounced at the left paracentral location of T5-6 together with ossification of the left ligamentum flavum, contributing to grry-zu-gzeyykum spinal canal narrowing, rightward displacement of the thoracic spinal cord and mild spinal cord compression. These findings corresponding to the abnormal finding seen on recent MRI. Prominent endplate osteophytes at posterior aspect of T4-5, contributing to mild spinal canal narrowing. Foraminal narrowing, moderate at left T5-6, mild at right T3-4. D/ / Jax Garza MD / Jax Garza MD Interpreting Provider: Jax Garza MD Consult Discharge Plan - Plan Referrals: NONE,PCP [Primary Care Provider] - (3) Spinal stenosis Qualifiers: Spinal region: lumbar Neurogenic claudication status: with neurogenic claudication Qualified Code(s): M48.062 - Spinal stenosis, lumbar region with neurogenic claudication (4) Osteomyelitis Qualifiers: Osteomyelitis type: unspecified type Osteomyelitis location: other site Qualified Code(s): M86.9 - Osteomyelitis, unspecified
[2018-09-12] MEDS: MethylPREDNISolone 40 MG/ML VIAL IVP SCH (20:17)
[2018-09-13] MEDS: Ketorolac 30 MG/ML VIAL IVP PRN ×3 (00:26→13:43)
[2018-09-13] MEDS: MethylPREDNISolone 40 MG/ML VIAL IVP SCH ×3 (00:27→16:48)
[2018-09-13] MEDS: *HR* OxyCODONE Immed Rel 5 MG TABLET PO PRN ×5 (00:27→19:43)
[2018-09-13] MEDS: traMADol 50 MG TABLET PO PRN ×2 (02:46→11:32)
[2018-09-13] MEDS: *HR* HYDROcodone/Acet 5/325 mg TABLET PO PRN ×2 (03:38→16:48)
[2018-09-13 03:47] LABS: Basophils % 0.1 %; Eosinophils % 0.1 %; Hematocrit 45.7 % (37.5-50.1); Hemoglobin 15.7 g/dL (12.9-16.9); Immature Granulocytes % 0.6 % (0-4); Lymphocytes # 0.6 K/mcL (0.6-4.6); Lymphocytes % 8.3 %; Mean Corpuscular HGB Conc 34.4 g/dL (31.6-35.5); Mean Corpuscular Hemoglobin 30.9 pg (28.0-33.3); Mean Platelet Volume 10.2 fL (9.4-12.4); Monocytes % 0.3 %; Neutrophils # 6.2 K/mcL (1.6-8.9); Platelet Count 196 K/mcL (140-400); Red Blood Count 5.08 M/mcL (4.19-5.50); Red Cell Distribution Width 11.6 % (11.5-14.5); Segmented Neutrophils % 90.6 %
[2018-09-13 04:03] LABS: BUN/Creatinine Ratio 19 (6-26); Blood Urea Nitrogen 16 mg/dL (6-20); Calcium 9.5 mg/dL (8.6-10.3); Carbon Dioxide 26 mEq/L (23-29); Chloride 102 mEq/L (98-107); Glucose 243 mg/dL (70-105); Osmolality,Calculated 293 (280-300); Potassium 4.3 mEq/L (3.5-5.1); Sodium 137 mEq/L (136-145); eGFR For Non-African Americans > 60 (> 60)
[2018-09-13] MEDS: *HR* Heparin 5,000 UNIT/ML VIAL SQ SCH ×2 (06:54→17:45)
[2018-09-13] MEDS: Gabapentin 300 MG CAPSULE PO SCH ×3 (07:40→20:51)
--- NOTE | 2018-09-13 09:54 | Neurology Progress Note ---
Date of Encounter: 09/13/18 Time of Encounter: 09:51 Assessment and Plan (1) Status post lumbar microdiscectomy Current Visit: Yes Status: Chronic Patient seen in follow-up today. He continues to report bilateral leg weakness as well as paresthesias. He is also reporting unremitting pain in the low back. MRI of the T-spine revealed displacement of the thoracic spinal cord at T5-T6 which is likely the reason for the bilateral leg weakness and paresthesias. Repeat CT imaging reveals prominent end osteophytes, most pronounced in the left paracentral location of T5-6 together with ossification of the left ligamentum flavum, contributing to mild to moderate spinal canal narrowing, rightward displacement of the thoracic spinal cord and mild spinal cord compression. With these findings would recommend transfer to a tertiary care facility for further testing and evaluation. The patient will likely benefit from decompression. Lower on the differential is the concern for possible spinal dural arteriovenous fistula. Further, we recommend transfer to facility capable of performing MRA of the T-spine as well as DSA as these tests are dated to evaluate for suspected spinal dural arteriovenous fistula and we do not have these capabilities at [place]. PLAN: C/W IV steroids C/W pain management measures PT/OT Subjective Principal diagnosis: S/p lumbar microdiscectomy, failed back syndrome, lumbar r adiculopathy Interval history: In brief, patient is a 28-year-old male who is S/P lumbar microdiscectomy in December 2017 with revision. Ultimately failed back pain syndrome with lumbar radiculopathy. Neurology originally consulted to evaluate for nonspinal cause of bilateral lower extremity weakness. MRI of T-spine revealed cordis placement at T6-T7 due to possible intraspinal hematoma versus abscess versus ventral dural defect versus spinal arachnoid cyst. Follow-up CT imaging reveals prominent in place osteophytes most pronounced in the left paracentral location at T5-T6 together with ossification of the left ligamentum flavum contributing to mild to moderate spinal canal narrowing and rightward displacement of thoracic spinal cord and mild spinal cord compression. Clinically, the patient's symptoms have not worsened or progressed overnight. He continues to report bilateral leg weakness and numbness throughout the groin as well as unremitting pain. Otherwise no new complaints. Discussed neuroimaging findings. Objective - Constitutional Vitals: Temp Pulse Resp BP Pulse Ox 97.6 F 90 16 143/78 96 09/13/18 07:29 09/13/18 07:29 09/13/18 07:29 09/13/18 07:29 09/13/18 07:29 Exam: Examination: General Examination: *CONSTITUTIONAL: Alert and oriented x3, no acute distress *GENERAL APPEARANCE OF PATIENT appears healthy and well groomed *EYES: pupils equal, round, reactive to light and accommodation, c onjunctiva clear *CARDIOVASCULAR no peripheral edema, distal temperature normal, dorsalis pedis pulses normal. Musculoskeletal: *GAIT AND STATION normal, with normal Romberg testing, no abnormalities such as broad base gait or spasticity *ASSESSMENT OF MUSCLE STRENGTH IN THE UPPER AND LOWER EXTREMITIES bilateral deltoid, bicep, tricep, carbon accountant strength 4/5, hip flexors ,anterior tibialis, dorsoflexion of the foot 4/5; poor effort on exam of strength BLE; examination of muscular strength is consistent with previous findings, no new focal weakness *MUSCLE TONE IN THE UPPER AND LOWER EXTREMITIES normal. No abnormal movements, fasciculations or atrophy identified. Neurological: *ORIENTATION to person, situation, time and place *RECURRENT AND REMOTE MEMORY intact *ATTENTION AND CONCENTRATION are normal *LANGUAGE FUNCTION no significant aphasia or dysarthia was noted. *FUND OF KNOWLEDGE aware of current events, past history, vocabulary *MENTAL attention span and concentration normal. *CN II optic fundi were normal, no papilledema noted. *CN III,IV, PERRLA extraocular eye movements were full, no nystagmus and no ptosis noted. *CN V shows normal sensation and jaw opens symmetrically. *CN VII shows normal facial movement symmetrically, upper and lower bilaterally. *CN VIII shows no significant hearing loss on exam *CN IX,,X palate elevated symmetrically *CN XI normal strength in the sternocleidomastoid muscles, symmetrical shoulder shrugging. *CN XII tongue protruded in the midline, with normal strength and movement. *SENSORY EXAMINATION altered sensation to b/l upper thighs extending into groin area *REFLEXES: deep tendon reflexes were normal and symmetrical , grade 2/4 diffusely, no pathological reflexes were noted. *CEREBELLAR TESTING normal finger to nose, heel/knee/barrow *PAIN LEVEL 0 Results - Laboratory Findings CBC and BMP: 09/13/18 03:24 09/13/18 03:24 Abnormal lab findings: Abnormal lab results Potassium 3.4 mEq/L (3.5-5.1) L 09/11/18 05:11 Carbon Dioxide 31 mEq/L (23-29) H 09/12/18 09:45 Glucose 243 mg/dL (70-105) H 09/13/18 03:24 37 mg/dL (40-59) L 09/11/18 05:11 Positive ng/mL (Rrpilu=378) H 09/11/18 00:40 Consult Discharge Plan - Plan Referrals: NONE,PCP [Primary Care Provider] -
[2018-09-13] MEDS: *HR* OxyCODONE ER (12 HR) 20 MG TABLET PO SCH ×2 (12:19→20:50)
--- NOTE | 2018-09-13 15:02 | Internal Med Progress Note ---
Hospitalist Progress Note - Encounter Date of Encounter: 09/13/18 Time of Encounter: 15:00 - Exam Vitals: Temp Pulse Resp BP Pulse Ox 97.6 F 90 16 143/78 96 09/13/18 07:29 09/13/18 07:29 09/13/18 07:29 09/13/18 07:29 09/13/18 07:29 - Assessment and Plan (1) Spinal stenosis Current Visit: Yes Status: Acute (2) Discitis of lumbosacral region Current Visit: Yes Status: Acute (3) Lumbar radiculopathy Current Visit: Yes Status: Acute (4) Osteomyelitis Current Visit: Yes Status: Acute - Time Spent with Patient Total time spent is greater than 50% in coordination of care (as documented) at patient's floor/unit and/or counseling patient: Internal Medicine: Result - Labs CBC & Chem 7: 09/13/18 03:24 09/13/18 03:24 Labs: Short CBC 09/13/18 Range/Units 03:24 WBC 6.9 (4.3-11.1) K/mcL Hgb 15.7 (12.9-16.9) g/dL Hct 45.7 (37.5-50.1) % Plt Count 196 (140-400) K/mcL Neutrophils # 6.2 (1.6-8.9) K/mcL BMP 09/13/18 03:24 Sodium 137 Potassium 4.3 Chloride 102 Carbon Dioxide 26 BUN 16 Creatinine 0.84 Glucose 243 H Calcium 9.5 - ABG Interpretation ABG results: PT/INR, D-dimer PT 10.8 Seconds (9.4-12.1) 09/11/18 05:11 - Impressions Impressions Thoracic Spine MRI 09/12/18 08:00 IMPRESSION: Signal abnormality in the left aspect of the spinal canal at T5-6 displacing the thoracic spinal cord to the right with mild spinal cord compression, corresponding to the previously seen area of signal abnormality, likely extramedullary. This finding is nonspecific, may be related to atypical hemangioma, osteophyte formation, inflammatory changes or neoplasm versus artifacts. Further evaluation with CT myelogram may be beneficial. D/ / Jax Garza MD / Jax Garza MD Interpreting Provider: Jax Garza MD Thoracic Spine CT 09/12/18 12:16 IMPRESSION: No acute fracture, subluxation or destructive osseous lesion in the thoracic spine. Prominent endplate osteophytes, most pronounced at the left paracentral location of T5-6 together with ossification of the left ligamentum flavum, contributing to [id number] spinal canal narrowing, rightward displacement of the thoracic spinal cord and mild spinal cord compression. These findings corresponding to the abnormal finding seen on recent MRI. Prominent endplate osteophytes at posterior aspect of T4-5, contributing to mild spinal canal narrowing. Foraminal narrowing, moderate at left T5-6, mild at right T3-4. D/ / Jax Garza MD / Jax Garza MD Interpreting Provider: Jax Garza MD Consult Discharge Plan - Plan Referrals: NONE,PCP [Primary Care Provider] - (1) Spinal stenosis Qualifiers: Spinal region: lumbar Neurogenic claudication status: with neurogenic claudic ation Qualified Code(s): M48.062 - Spinal stenosis, lumbar region with isaac rogenic claudication (4) Osteomyelitis Qualifiers: Osteomyelitis type: unspecified type Osteomyelitis location: other site Qualified Code(s): M86.9 - Osteomyelitis, unspecified
--- NOTE | 2018-09-13 15:15 | Spine Progress Note ---
Date of Encounter: 09/13/18 Time of Encounter: 15:10 - Assessment and Plan (1) Status post lumbar microdiscectomy Current Visit: Yes Status: Chronic CT scan of the thoracic spine reveals : Prominent endplate osteophytes, most pronounced at the left paracentral location of T5-6 together with ossification of the left ligamentum flavum, contributing to [id number] spinal canal narrowing, rightward displacement of the thoracic spinal cord and mild spinal cord compression. These findings corresponding to the abnormal finding seen on recent MRI. Impression: 1) failed back surgical syndrome 2) lumbar radiculopathy 3) stat us post microdiscectomy 4) thoracic stenosis Plan: The patient is going to transfer to his neurosurgeons at [facility]. Subjective Principal diagnosis: S/p lumbar microdiscectomy, failed back syndrome, lumbar radiculopathy Interval history: A second continues with some numbness in the lower extremities as well as subjective complaints of weakness. Afebrile vital signs stable. He is got no focal motor deficits or significant changes in exam. He has had recent workup including CT scan of the lumbar spine which shows calcification in in some of the posterior elements causing some spinal cord displacement and moderate stenosis. I favor these to be calcified ligamentum flavum and osteophyte. I have also discussed case with Dr. Antoinette Cantor of [facility] who also favors non-tumor diagnosis. However the exact pathology cannot be definitively stated. The patient has 2 neurosurgeons who have been involved in his care in the past at [facility]. He is desirous of transfer for neurosurgical consultation which I feel is reasonable. Objective Vital signs: Vital Signs Temp Pulse Resp BP Pulse Ox 09/13/18 07:29 97.6 F 90 16 143/78 96 09/13/18 04:21 98.4 F 70 18 156/100 95 09/12/18 23:39 98.3 F 69 19 160/103 93 09/12/18 19:16 98.4 F 70 16 156/110 95 09/12/18 15:59 97.7 F 82 18 154/101 95 Intake and Output 09/12/18 09/13/18 09/13/18 23:59 07:59 15:59 Intake Total 480 / 480 Balance 480 / 480 Intake: Oral 480 / 480 Other: Meal Lunch Percent of Meal Consumed 100% # Voids 1 - Labs CBC & BMP: 09/13/18 03:24 09/13/18 03:24 Labs: Abnormal lab results Potassium 3.4 mEq/L (3.5-5.1) L 09/11/18 05:11 Carbon Dioxide 31 mEq/L (23-29) H 09/12/18 09:45 Glucose 243 mg/dL (70-105) H 09/13/18 03:24 37 mg/dL (40-59) L 09/11/18 05:11 Positive ng/mL ([id number]=598) H 09/11/18 00:40 Consult Discharge Plan - Plan Referrals: NONE,PCP [Primary Care Provider] -
--- NOTE | 2018-09-13 16:32 | Discharge Summary ---
- NOTES TO OUTPATIENT PROVIDER Notes to Outpatient Provider: Patient being transferred to [facility] for higher level of care. Orders not resulted at time of discharge: Pending orders 09/10/18 14:30 Culture,Blood [BC] Stat Date of Encounter: 09/13/18 Time of Encounter: 16:29 - Discharge Diagnosis (1) Spinal stenosis Priority: Primary Status: Acute Qualifiers: Spinal region: lumbar Neurogenic claudication status: with neurogenic claudication Qualified Code(s): M48.062 - Spinal stenosis, lumbar region with neurogenic claudication (2) Discitis of lumbosacral region Priority: Secondary Status: Ruled-out (3) Lumbar radiculopathy Priority: Secondary Status: Acute (4) Osteomyelitis Priority: Secondary Status: Ruled-out Qualifiers: Osteomyelitis type: unspecified type Osteomyelitis location: other site Qualified Code(s): M86.9 - Osteomyelitis, unspecified Hospital course: Mr. Sanders is a 28 year old male patient with a history of congenital spinal stenosis who had surgery in December 2017 at [facility] was hospitalized here with complaints of acute on chronic back pain along with worsening lateral leg numbness and weakness. He had an MRI of the lumbar spine which initially showed possible discitis/osteomyelitis and anterior paraspinal phlegmon. Infectious disease was called and at this time they do not recommend any antibiotics as he did not appear to be having an active infection given that his ESR and CRP were normal. Patient then underwent thoracic spine CT and thoracic and cervical spine MRI which showed Signal abnormality in the left aspect of the spinal canal at T5-6 displacing the thoracic spinal cord to the right and mild spinal cord compression. As such patient has been recommended transfer to on, the hospital to be evaluated by his neurosurgeon for further evaluation. I have called [facility] and spoken with Dr. Carlisle who has accepted the patient and he will be admitted to the hospitalist service there. He will be transferred there once he has a bed available. In the meantime his receiving pain medications to help treat his pain along with Solu-Medrol. Discharge discussed with: patient, nurse, homemaking rehabilitation consultant - Time Spent with Patient Total time spent providing and/or coordinating discharge services: Time spent: Greater than 30 minutes (50 min) - Discharge Medications Prescriptions: Continued Gabapentin [Neurontin] 600 mg PO TID Oxycodone HCl/Acetaminophen [Percocet 5-325 mg Tablet] 1 each PO Q8H PRN PRN Reason: Pain Home Medications: Gabapentin [Neurontin] 600 mg PO TID 09/10/18 [History] Oxycodone HCl/Acetaminophen [Percocet 5-325 mg Tablet] 1 each PO Q8H PRN 09/10/18 [History] Allergies/Adverse Reactions: Allergy/AdvReac Type Severity Reaction Status Date / Time No Known Allergies Allergy Verified 09/10/18 12:18 Date of admission: 09/10/18 15:36 Primary care physician: PCP NONE Consults: 09/10/18 16:21 Consult to Physical Therapy [CONS] Routine Comment: Evaluate, develop and implement POC Reason for Consult: Back pain Does patient have active BEDREST order?: No Is patient medically & hemodynamically stable?: Yes 09/10/18 16:38 Consult to Physician [CONS] Routine Consulting Provider: Miguel Ángel Cotton Jr Reason for Consult: Back pain with b/l numbness Call Completed: Yes 09/10/18 16:40 Consult to Neurology [CONS] Routine Consulting Provider: Neurology [facility] Reason for Consult: B/L leg numbness Call Completed: No 09/11/18 10:05 Consult to Infectious Diseases [CONS] Routine Consulting Provider: Infectious Disease Emelia Reason for Consult: Suspected osteomyelitis by L-spine MRI Call Completed: Yes 09/11/18 10:09 Consult to Pain Management [CONS] Routine Consulting Provider: Pain Mgt [facility]ventional Emelia Reason for Consult: Back pain Call Completed: Yes Discharging clinician: Oly Yadav Anticipated date of discharge: 09/13/18 - Constitutional Vitals: Temp Pulse Resp BP Pulse Ox 98.3 F 110 16 146/84 94 09/13/18 15:31 09/13/18 15:31 09/13/18 15:31 09/13/18 15:31 09/13/18 15:31 Exam: General: Patient is alert, no acute distress, oriented x 3 ENT: Mucous membranes moist Respiratory: Good respiratory effort. Normal breath sounds. No wheezing or crackles. Cardiovascular: Regular rate and rhythm. s1 and s2 normal No clicks, rubs, gallops, or murmurs. No pedal edema Abdomen: Abdomen is soft, nontender. Bowel sounds are present Musculoskeletal: Spontaneously moving all extremities Skin: warm, dry, intact. Neuro: Alert oriented x 3 normal cranial nerves, decreased strength in bilateral lower extremities - Patient Status Disposition: Transfer Other Condition: Good Functional capacity at discharge: bed bound Overall status at discharge: patient is not back to baseline - Discharge Instructions Follow Up With: NONE,PCP [Primary Care Provider] -
[2018-09-13] MEDS ORDERED: MethylPREDNISolone 40 MG/ML VIAL IVP SCH (17:00)
[2018-09-13 22:00] VITALS: BP 156/99
== END 2018-09-13 22:00 | disposition other institution (70) | DRG 347 ==
LOC: EMEROOARM 12:14 → 3NENU 12:14 → SUATTDRO 15:36 → 3NENU 15:41
PROVIDERS: ADMIT Student in an Organized Health Care Education/Training Program; ATTEND Internal Medicine